=== PATIENT | male | born 1995 | race Caucasian/White ===

== ENCOUNTER 2024-08-18 17:21 | Emergency (ER) | payer MEDICAID ==
[~2024-08-18] VITALS: Ht 185.4 cm; Wt 78.6 kg
[2024-08-18 18:33] VITALS: BP 128/78; PULSE 82; RESP 13; TEMP 98.6; O2SAT 97
== END 2024-08-18 18:35 | disposition home or self-care (01) ==
LOC: ER 17:21
DX: T40.411A Poisoning by fentanyl or fentanyl analogs, accidental (unintentional), initial encounter (principal); R40.2A Nontraumatic coma due to underlying condition; Z88.5 Allergy status to narcotic agent; Z59.00 Homelessness unspecified; Z98.890 Other specified postprocedural states; Y92.89 Other specified places as the place of occurrence of the external cause
CPT/HCPCS: 99283; A4615

== ENCOUNTER 2024-11-20 20:06 | Emergency (ER) | payer MEDICAID ==
[~2024-11-20] VITALS: Ht 188 cm; Wt 73.6 kg
[2024-11-20 20:11] VITALS: BP 117/77; PULSE 92; RESP 12; TEMP 97.5; O2SAT 96
--- NOTE | 2024-11-20 22:46 | RADIOLOGY REPORT ---
HISTORY: FACIAL INJURY TECHNIQUE: Nonenhanced axial images through the facial bones with coronal and sagittal MPR. Radiation Dose Information: CT Dose: CTDI volume is 55 mGy. Dose-length product is 1215 mGy*cm COMPARISON: None FINDINGS: Mandible: Within normal limits Maxilla: Within normal limits Pterygoid plates: Within normal limits Zygomatic processes: Within normal limits . Zygomatic arches: Within normal limits Orbits: Within normal limits Sinuses: Mucous retention cysts in the right maxillary sinus. Facial swelling: Soft tissue injury involving the right face. IMPRESSION: 1. No acute facial fractures. Radiation optimization: All CT scans at this facility use at least one of these dose optimization anna hniques: automated exposure control mA and/or kV adjustment per patient size (includes targeted exam s where dose is matched to clinical indication) or iterative reconstruction.
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
== END 2024-11-21 00:18 | disposition home or self-care (01) ==
LOC: ER 20:07
DX: S05.11XA Contusion of eyeball and orbital tissues, right eye, initial encounter (principal); Z88.5 Allergy status to narcotic agent; W22.8XXA Striking against or struck by other objects, initial encounter; Y93.89 Activity, other specified; Y92.89 Other specified places as the place of occurrence of the external cause; Y99.8 Other external cause status
CPT/HCPCS: 70486; 99284